=== PATIENT | female | born 1970 | race Caucasian/White ===

== ENCOUNTER 2016-10-31 08:45 | Day surgery (SDC) | payer BC ==
[~2016-10-31] VITALS: Ht 165.1 cm; Wt 113.9 kg
--- NOTE | ~2016-10-31 | OR ---
PATIENT'S NAME: ALLYSON BRADSHAWDY Liliana [facility] AGE: 46 Y [address] ROOM: [place] [address] LOCATION: [facility] ADMIT DATE: 10/31/2016 OR/Procedure Report DISCHARGE DATE: FAMILY PHYSICIAN: Robin Acosta MD ATTENDING PHYSICIAN: PACHECO YANG SURGEON: Pacheco Yang MD LEACH TANK TENDER: None. DATE OF PROCEDURE: 10/31/2016 PREOPERATIVE DIAGNOSES: 1. 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 2. Gastrocnemius equinus/shortened Achilles tendon. 3. Contraction of posterior tibial tendon, flexor hallucis longus tendon, and flexor digitorum longus, as well as contraction of the peroneus longus tendon. 4. Tibiotalar and subtalar joint primary osteoarthritis. POSTOPERATIVE DIAGNOSES: 1. 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 2. Gastrocnemius equinus/shortened Achilles tendon. 3. Contraction of posterior tibial tendon, flexor hallucis longus tendon, and flexor digitorum longus, as well as contraction of the peroneus longus tendon. 4. Tibiotalar and subtalar joint primary osteoarthritis. PROCEDURES PERFORMED: 1. Right tibiotalocalcaneal fusion. 2. Tendo Achilles lengthening. 3. Posterior tibial tendon lengthening. 4. Flexor digitorum longus tendon lengthening. 5. Flexor hallucis longus tendon lengthening. 6. Tenolysis of peroneus longus tendon with tenodesis to peroneus brevis tendon. 7. Use of intraoperative fluoroscopy, less than one hour. ANESTHESIA: General endotracheal anesthesia and peripheral nerve block. ESTIMATED BLOOD LOSS: Minimal. TOURNIQUET: Right proximal thigh to 250 mmHg. SPECIMENS: None. COMPLICATIONS: None. PATIENT'S NAME: TIMOTHY BRADSHAW [facility] AGE: 46 Y [address] ROOM: [place] [address] LOCATION: [facility] ADMIT DATE: 10/31/2016 OR/Procedure Report DISCHARGE DATE: FAMILY PHYSICIAN: Robin Acosta MD ATTENDING PHYSICIAN: PACHECO YANG DISPOSITION: Stable, in PACU. COUNTS: All counts correct. IMPLANTS: Stephany T2 tibiotalocalcaneal fusion nail with interlocking screws. INDICATIONS: Ms. Bradshaw is a pleasant, 46-year-old female who underwent the noted procedures above. The risks, benefits, and alternatives to pursuing the surgical intervention were discussed with the patient in detail. The patient elected to proceed with surgery as noted above. I marked the right lower extremity, indicating the correct surgical site. Anesthesia was consulted for their perioperative evaluation of the patient. OPERATIVE REPORT IN DETAIL: The patient was taken from the holding area to the operating room. A time-out was performed. General endotracheal anesthesia was administered. A nerve block had been placed by the anesthesia team. Antibiotics were administered for perioperative prophylaxis. I turned my attention to the right lower extremity. The right lower extremity was then prepped and draped in a sterile fashion. An Esmarch was used to exsanguinate the limb, and the tourniquet was inflated to 250 mmHg. I began by performing my tendo Achilles lengthening procedure. I made a small incision on the posterior aspect of the Achilles in order to lengthen it. There was a severe gastrocnemius equinus/shortened Achilles tendon deformity that needed to be addressed in order to get the ankle to a neutral position. Once the tendo Achilles lengthening was performed, I turned my attention to the medial aspect of the foot. I identified the posterior tibial tendon, flexor hallucis longus tendon, and flexor digitorum longus tendon. They were all identified independently. They were subsequently identified with the use of a Ragnell retractor. With a small retractor in place, all 3 tendons were lengthened. I turned my attention to the lateral aspect of the ankle. I introduced intraoperative fluoroscopy. I identified the position of the ankle and distal tip of the fibula. I began with a transfibular incision on the lateral aspect of the ankle through skin and subcutaneous tissue down to the fibula bone. Using an oscillating saw, I osteotomized the fibula and removed it. It was morselized and turned into bone graft. The peroneus longus tendon was quite degenerated, and I subsequently used a FiberWire in order to tenodese the peroneus brevis to the peroneus longus. The peroneus longus was then cut distally, and a portion of the tendon was removed. I exposed and identified the tibiotalar joint. At the tibiotalar joint, I used an oscillating saw, and I performed a flat cut to the distal tibia and talar dome. I then used a 0.062 K-wire in order to put holes in the subchondral bone. I then used a lamina template clerk to expose the subtalar joint. The subtalar joint was quite PATIENT'S NAME: TIMOTHY BRADSHAW [facility] AGE: 46 Y [address] ROOM: [address] [address] LOCATION: [facility] ADMIT DATE: 10/31/2016 OR/Procedure Report DISCHARGE DATE: FAMILY PHYSICIAN: Robin Acosta MD ATTENDING PHYSICIAN: PACHECO YANG degenerated. I prepared the joint with a series of quarter-inch osteotomes and a mallet to remove the existing cartilage along with curettes. I then used a 0.062 K-wire to put holes into the subchondral bone. The wound was then copiously irrigated with a normal sterile saline solution via pulsatile lavage. It was stuffed with morselized bone graft from the fibula. I then made a small incision at the plantar surface of the patient's heel. I introduced a K-wire and confirmed the position of the pin fluoroscopically. I reamed for, broached, and then subsequently placed my tibiotalocalcaneal nail. The position of the nail was confirmed fluoroscopically. I drilled a hole in the calcaneus. I placed an interlocking nail through the center of the calcaneus. I then placed 2 medial screws into the proximal portion of the nail to achieve proximal fixation. I then compressed across the tibiotalar articulation and achieved good compression radiographically and clinically. I then placed a screw in the lateral calcaneus. I then performed compression across the subtalar joint with a flywheel at the bottom of the nail. I did achieve good compression here too. I then placed a screw laterally into the calcaneus. I then drilled for, measured, and placed a screw in the posterior aspect of the calcaneus through the nail. This was all confirmed fluoroscopically. I then put a cap in the nail to make the posterior screw to the calcaneus into the nail a fixed angle device. I then confirmed, took final fluoroscopic images. All the wounds were copiously irrigated and closed in layers beginning with 0 Vicryl suture, followed by 2-0 Vicryl suture and nhan to approximate the skin. The position of the foot was neutral and plantigrade after fixation. The tourniquet was let down. The foot did re- perfuse. A sterile dressing was placed in the form of Xeroform, followed by 4x4 and Webril. The patient was then placed in a well-padded short-leg splint with the ankle in neutral dorsiflexion. The patient was then transferred from the operating room table onto the stretcher and extubated. She was then taken to the recovery room in stable condition. There were no intraoperative complications. IMPRESSION: The patient is status post the noted procedures above. PLAN: The patient will be nonweightbearing on the right lower extremity in a splint. She was instructed to rest, ice, and elevate the extremity going forward. Postoperative pain control will be in the form of Percocet and IV morphine as needed for pain. DVT prophylaxis will be in the form of Lovenox. The patient will be admitted overnight for observation. Postoperative antibiotics will be per routine. I will continue to watch the patient closely postoperatively. PATIENT'S NAME: TIMOTHY BRADSHAW [facility] AGE: 46 Y [address] ROOM: [place] [address] LOCATION: [facility] ADMIT DATE: 10/31/2016 OR/Procedure Report DISCHARGE DATE: FAMILY PHYSICIAN: Robin Acosta MD ATTENDING PHYSICIAN: PACHECO YANG MD AURORA ARREGUIN/modl /[id number] d: 10/31/16 1901 t: 11/01/16 0949, OPERATIVE SUMMARY
[~2016-10-31 08:45] MED LIST: ASPIRIN325 MG PO; CHANTIX0.5 MG PO; FEOSOL325 MG PO; K-TAB 10MEQ10 MEQ PO; MELATONIN10 M2 PO; ZOLOFT50 MG PO
[2016-10-31 09:09] LABS: BASOPHIL # 0.1 K/uL (0.0-0.2); BASOPHIL % 1.3 %; EOSINOPHIL # 0.3 K/uL (0.0-0.5); EOSINOPHIL % 3.5 %; HEMATOCRIT 38.4 % (33.0-46.0); HEMOGLOBIN 11.7 g/dL (10.0-15.0); IMMATURE GRANULOCYTE % 0.1 %; LYMPHOCYTE # 2.4 K/uL (0.8-4.0); LYMPHOCYTE % 27.6 %; MCH 25.1 pg (27.0-34.0); MCHC 30.5 gm/dL (32.0-36.5); MCV 82.2 fl (83.0-98.0); MONOCYTE # 0.7 K/uL (0.0-1.0); MONOCYTE % 8.3 %; MPV 10.3 fl (9.4-12.4); NEUTROPHIL # (ANC) 5.2 K/uL (1.8-7.8); NEUTROPHIL % 59.2 %; NRBC % 0 /100WBC (0-0.00); PLATELET COUNT 264 K/uL (150-450); RBC 4.67 M/uL (3.50-5.50); RDW-CV 23.3 % (11.9-14.6); WBC 8.8 K/uL (4.0-11.0)
[2016-10-31 09:28] LABS: ALBUMIN 3.6 gm/dL (3.5-5.0); ALK PHOS 75 IU/L (33-138); ALT 13 IU/L (12-78); ANION GAP 12.9 (10.0-19.0); AST 13 IU/L (10-40); BLOOD UREA NITROGEN 8 mg/dL (6-24); CALCIUM 8.5 mg/dL (8.5-10.5); CHLORIDE 108 mMol/L (96-110); CO2 23 mMol/L (22-32); CREATININE 0.7 mg/dL (0.5-1.1); ESTIMATED GFR (MDRD EQUATION) > 60; POTASSIUM 3.9 mMol/L (3.7-5.1); SODIUM 140 mMol/L (135-145); TOTAL BILIRUBIN 0.4 mg/dL (0.0-1.5); TOTAL PROTEIN 7.6 g/dL (6.0-8.4)
[2016-11-01] MEDS ORDERED: PERCOCET 5-3251 EACH PO (11:58)
[2016-11-01] MEDS ORDERED: ECOTRIN325 MG PO (11:59)
== END 2016-11-01 12:30 | disposition disaster alternative care site (69) ==
LOC: G3N 08:45 → GSDC 08:45 → G3N 15:31 → GSDC 11-01 12:30
PROVIDERS: Orthopaedic Surgery Adult Reconstructive Orthopaedic Surgery
PROC: 0SGH0ZZ (ICD-10-PCS; principal; 2016-10-31)
PROC: 0L8N0ZZ Division of Right Lower Leg Tendon, Open Approach (ICD-10-PCS; 2016-10-31)
PROC: 0LNS0ZZ Release Right Ankle Tendon, Open Approach (ICD-10-PCS; 2016-10-31)
DX: M21.6X1 Other acquired deformities of right foot (principal); M62.461 Contracture of muscle, right lower leg; M19.071 Primary osteoarthritis, right ankle and foot; E78.5 Hyperlipidemia, unspecified; F32.9 Major depressive disorder, single episode, unspecified; F17.210 Nicotine dependence, cigarettes, uncomplicated; E66.9 Obesity, unspecified; Z68.41 Body mass index [BMI] 40.0-44.9, adult; Z90.49 Acquired absence of other specified parts of digestive tract
CPT/HCPCS: C1713; C1769; J0690; J2250; J3010; J3480; J7120